=== PATIENT | female | born 1970 | race Caucasian/White ===

== ENCOUNTER 2021-10-30 16:17 | Inpatient (IN) | payer OTHER, SELFPAY ==
[2021-10-30 18:00] VITALS: BP 134/80; PULSE 74
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
[2021-10-31 09:09] VITALS: BP 132/84; PULSE 109; RESP 16; TEMP 36.2; O2SAT 98
--- NOTE | 2021-10-31 11:37 | HO.PM.IMCN ---
History of Present Illness Data of Consult Service Date: 10/31/21 Primary Care Provider: Unknown Physician HPI Reason for consult: Medical H&P 51 yo unreliable historian who is admitted on M5. She reports her medical history is only significant for b/l congenital hip dysplasia and mutiple surgeries. She appears to be on medicine for HTN, GERD, Hypothyroid. She denies any current active medical problems. PMH Likely: GERD, HTN, Hypothyroid PSH Multiple hip surgeries, CCK, b/l Breast reduction FH CAD SH Denies Tobacco, Alcohol or Illicit substances Review of Systems Review of Systems: negative except hpi PMFSH Social History Household Members: None Housing: Unknown / Unable to assess Do you presently have visiting nurse or other home services: No Patient Tobacco Use Status: Never used Tobacco Smoked in Last 30 Days: No e-Cigarette/Vaping Use: Never Used Patient Interested in Nicotine Replacement: No Patient Given Instructions on How to Stop Smoking: No Second Hand Smoke Exposure: No Use of substances other than those prescribed or required for medical reasons: No Currently Displaying Signs/Symptoms of Drug Intoxication Withdrawal: No Have you been hit, kicked, punched, or otherwise hurt by someone within the past year? If so, by whom?: No Do you feel safe in your current relationship?: No Current Relationship Is there a partner from a previous relationship who is making you feel unsafe now?: No Are you made to feel afraid or neglected: No Advance Directives: No Advance Directives Information Provided: No Do you have thoughts of harming others: None Do you have a plan to hurt others: No Plan Recently lost weight without trying: No How much weight loss: Not applicable Nutrition Risks: No Nutritional Risk Patient : No : No Poor oral hygiene: No Meds Allergies Allergy/AdvReac Type Severity Reaction Status Date / Time erythromycin base Allergy Unknown Hives Verified 10/30/21 16:44 [From Erythrocin] Active Medications: Current Medications Acetaminophen (Acetaminophen 325 Mg Tablet) 650 mg PO Q6H PRN PRN Reason: Headache/Pain Mild Scale (1-3) Al Hydroxide/Mg Hydroxide (Magnesium Hydrox/Alum Hydrox 30 Ml Oral.Susp) 30 ml PO Q6H PRN PRN Reason: Heartburn/Nausea Bupropion HCl (Bupropion Hcl 75 Mg Tablet) 75 mg PO BID [facility] Last Admin: 10/31/21 09:18 Dose: Not Given Documented by: Diphenhydramine HCl (Diphenhydramine Hcl 25 Mg Tablet) 50 mg PO Q4H PRN PRN Reason: agitation Famotidine (Famotidine 20 Mg Tablet) 20 mg PO DAILY [facility] Last Admin: 10/31/21 09:18 Dose: Not Given Documented by: Haloperidol (Haloperidol 5 Mg Tablet) 5 mg PO Q4H PRN PRN Reason: agitation Hydroxyzine HCl (Hydroxyzine Hcl 25 Mg Tablet) 25 mg PO BEDTIME PRN PRN Reason: Anxiety Levothyroxine Sodium (Levothyroxine Sodium 50 Mcg Tablet) 50 mcg PO DAILY@0600 [facility] Last Admin: 10/31/21 05:26 Dose: Not Given Documented by: Lorazepam (Lorazepam 1 Mg Tablet) 2 mg PO Q4H PRN PRN Reason: agitation Magnesium Hydroxide (Milk Of Magnesia 30 Ml Oral.Susp) 30 ml PO DAILY PRN PRN Reason: Constipation Methylphenidate HCl (Methylphenidate Hcl 10 Mg Tablet) 10 mg PO TID [facility] Last Admin: 10/31/21 09:18 Dose: Not Given Documented by: Metoprolol Tartrate (Metoprolol Tartrate 25 Mg Tablet) 25 mg PO BID [facility]; Protocol Last Admin: 10/31/21 09:19 Dose: Not Given Documented by: Olanzapine (Olanzapine 5 Mg Tablet) 5 mg PO BEDTIME [facility] Last Admin: 10/30/21 18:25 Dose: Not Given Documented by: Trazodone HCl (Trazodone Hcl 50 Mg Tablet) 50 mg PO BEDTIME PRN PRN Reason: Insomnia Home Medications Medication Instructions Recorded Confirmed Last Taken Type acetaminophen 325 mg tablet tab PO DAILY 10/30/21 10/30/21 Unknown History (Tylenol) bupropion HCl 75 mg tablet 1 tab PO BID 10/30/21 10/30/21 Unknown History famotidine 20 mg tablet 1 tab PO DAILY 10/30/21 10/30/21 Unknown History gabapentin 600 mg tablet mg PO 10/30/21 10/30/21 Unknown History levothyroxine 50 mcg tablet 1 tab PO DAILY 10/30/21 10/30/21 Unknown History methadone 10 mg tablet tab PO 10/30/21 10/30/21 Unknown History methylphenidate HCl 10 mg tablet 1 tab PO TID 10/30/21 10/30/21 Unknown History metoprolol tartrate 25 mg tablet 1 tab PO BID 10/30/21 10/30/21 Unknown History olanzapine 5 mg tablet (Zyprexa) 5 mg PO BEDTIME 10/30/21 10/30/21 Unknown History Physical Exam Vital Signs and Narrative: Vital Signs: Last Vital Signs Temp 97.2 F 10/31/21 09:09 Pulse 109 H 10/31/21 09:09 Resp 16 10/31/21 09:09 BP 132/84 10/31/21 09:09 Pulse Ox 98 10/31/21 09:09 Const: Other: General - no acute distress, appears comfortable Cardiovascular - regular rate and rhythm, S1-S2 Lungs - normal respiratory effort, clear to auscultation bilaterally, no wheezing Abdomen - soft, nontender, no rebound or guarding Extremities - no edema bilaterally Neuro - awake and alert, no focal deficits; CN 2-12 in tact b/l Assessment and Plan (1) Routine medical exam: Status: Acute Plan 51 yo F who is an unreliable historian. She is admitted to the inpatient psych unit. Medical consult requested for medical H&P. Continue her baseline medications for her chronic medical problems. If not completed at outside hospital --- perform routine labs, EKG, etc. Medically Stable at this time. Please reconsult PRN.
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
[2021-10-31 18:00] VITALS: RESP 16
[2021-11-01 06:00] VITALS: BP 130/81; PULSE 95; RESP 18; TEMP 36.5; O2SAT 99
[2021-11-01 15:59] VITALS: BP 136/87; PULSE 98
--- NOTE | 2021-11-01 16:39 | HO.PSYCHPN ---
Subjective Subjective Date of Service: 11/01/21 Reason For Visit: mood disorder Subjective Notes: Section 12B Interim History: Met with patient and discussed with nursing. As per nursing sleep was broken last night but patient is declining all medications. Patient reports they need to go to [facility] for hip surgery. Reported having surgery there was a child for congenital hip dysplasia. Reports that be working with the same surgeons for many years and that they also taught the patient how to do their own surgery. Reports sleep has been going well. Still does not feel there is any need for medications and they simply need to be discharged. Unable to clarify circumstances of being in hospital and insight poor. Medication Compliance: No Side effects from medications: No Attending Groups: Intermittent Review of Systems Acute medical concerns: No Review of Systems Review of Systems Unremarkable Mental Status Exam Mental Status Exam Narrative: seen in room. Cooperative with show card writer. Some thought disorder at times. Flat affect. No SI. No HI. Bizarre delusions. Denies hallucinations. Insight judgment limited Diagnostics Vital Signs (24Hr): Vital Signs - 24 hr 10/31/21 18:00 11/01/21 06:00 11/01/21 15:59 Temperature 97.7 F Pulse Rate 95 98 Respiratory Rate 16 18 Blood Pressure 130/81 136/87 Pulse Oximetry 99 Medications Medications Current Medications Acetaminophen (Acetaminophen 325 Mg Tablet) 650 mg PO Q6H PRN PRN Reason: Headache/Pain Mild Scale (1-3) Al Hydroxide/Mg Hydroxide (Magnesium Hydrox/Alum Hydrox 30 Ml Oral.Susp) 30 ml PO Q6H PRN PRN Reason: Heartburn/Nausea Diphenhydramine HCl (Diphenhydramine Hcl 25 Mg Tablet) 50 mg PO Q4H PRN PRN Reason: agitation Famotidine (Famotidine 20 Mg Tablet) 20 mg PO DAILY PRN PRN Reason: dyspepsia Haloperidol (Haloperidol 5 Mg Tablet) 5 mg PO Q4H PRN PRN Reason: agitation Hydroxyzine HCl (Hydroxyzine Hcl 25 Mg Tablet) 25 mg PO Q6H PRN PRN Reason: Anxiety Levothyroxine Sodium (Levothyroxine Sodium 50 Mcg Tablet) 50 mcg PO DAILY@0600 [facility] Last Admin: 11/01/21 06:59 Dose: Not Given Documented by: Lorazepam (Lorazepam 1 Mg Tablet) 2 mg PO Q4H PRN PRN Reason: agitation Magnesium Hydroxide (Milk Of Magnesia 30 Ml Oral.Susp) 30 ml PO DAILY PRN PRN Reason: Constipation Metoprolol Tartrate (Metoprolol Tartrate 25 Mg Tablet) 25 mg PO BID PRN; Protocol PRN Reason: HTN Olanzapine (Olanzapine 5 Mg Tablet) 5 mg PO BEDTIME [facility] Last Admin: 10/31/21 18:58 Dose: Not Given Documented by: Trazodone HCl (Trazodone Hcl 50 Mg Tablet) 50 mg PO BEDTIME PRN PRN Reason: Insomnia Allergies Allergies Allergy/AdvReac Type Severity Reaction Status Date / Time erythromycin base Allergy Unknown Hives Verified 10/30/21 16:44 [From Erythrocin] Assessment & Plan Assessment & Plan (1) Psychotic disorder: Status: Acute Code(s): F29 - Unspecified psychosis not due to a substance or known physiological condition (2) Hip dysplasia, congenital: Status: Chronic Code(s): Q65.89 - Other specified congenital deformities of hip Plan Patient is a 51-year-old female with history of psychotic disorder or bipolar disorder, past psychiatric hospitalization, hypertension congenital hip dysplasia status post surgery, chronic hip pain prescribed methadone who presents for paranoid, delusional thinking, brought in by police, reports saying that patient was arrested for assault and battery with a weapon and making homicidal statements. On admission, patient is mildly manic, talking a little fast. She has a fixed, false persecutory delusional thought about local morals squad police officer intentionally targeting her, aiming to kill her so he can acquire her house. Patient has no insight and no judgment. She does not want medication and remains on a Section 12 B. Patient denies any HI or having assaulted anyone; denies SI or AVH. At 1 point she seemed to imply she had not been sleeping much, but with further inquiry she says that no she has been sleeping overall well enough, about 7 hours a night. PLAN: SECTION 12B Q 15 minute checks Will discontinue methadone which she says she no longer is taking and will refuse. Patient also refuses all prescribed home medications including metoprolol (currently BP within normal limits) Will add Haldol/Ativan/Benadryl as a p.r.n. Will need to gather collateral At this point suspect will need to file for commitment reviewed labs from [facility] CBC, lytes, BUN/creatinine all within normal limits; negative urine ; U tox negative for alcohol 11/01/2021: No changes to primary team treatment plan as commitment hearing pending while refusing medications I spent minutes with the patient and/or on the patient floor today, greater than?50% of which was spent counseling/coordinating care. Reason for contiued inpatient stay Substantial Risk for: inability to function
[2021-11-01] MEDS: Acetaminophen 325 MG TABLET 650 MG PO (18:54)
[2021-11-01] MEDS: diphenhydrAMINE HCL 25 MG TABLET 50 MG PO (23:38)
[2021-11-02] MEDS: Acetaminophen 325 MG TABLET 650 MG PO ×2 (01:45→09:20)
[2021-11-02] MEDS: Metoprolol Tartrate 25 MG TABLET PO ×2 (03:37→13:25)
[2021-11-02] MEDS: diphenhydrAMINE HCL 25 MG TABLET 50 MG PO ×3 (03:38→13:25)
[2021-11-02] MEDS: Famotidine 20 MG TABLET PO (03:40)
[2021-11-02 03:46] VITALS: BP 140/93; PULSE 85; RESP 18; TEMP 36.6; O2SAT 98
[2021-11-02] MEDS: Levothyroxine Sodium 50 MCG TABLET PO (05:56)
--- NOTE | 2021-11-02 11:52 | P.PNPSI_ITS ---
Subjective Subjective Date of Service: 11/02/21 Reason For Visit: mood disorder Subjective Notes: Section 12B Medical Problems Affecting Mental Status: Yes (Chronic arthralgia) Interim History: Met with patient and discussed with nursing. Patient continues to report ongoing need for hip surgery. Delusional believes around being able to perform self surgery and bizarre delusions appears slightly less intense today. Denies depression. Does endorse chronic pain with asking about ibuprofen. Also reported that Suboxone was helpful in the past and may discuss this with her treatment team. 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 Sleep has been broken at night and reported that low-dose Benadryl was helpful in the past 12.5 mg. Did bright not been she talked about her family and her daughter. Otherwise unable to clarify circumstances of being in hospital and insight poor. Medication Compliance: No Side effects from medications: No Attending Groups: No Review of Systems Acute medical concerns: No Review of Systems Musculoskeletal: Reports arthralgias (b/l intermittent hip pain; chronic) Comments: Arthralgia Mental Status Exam Mental Status Exam Narrative: Seen in room. Cooperative with public relations writer. Some thought disorder at times. Flat affect. No SI. No HI. Bizarre delusions, but less intense today. Denies hallucinations. Insight judgment limited Diagnostics Vital Signs (24Hr): Vital Signs - 24 hr 11/01/21 15:59 11/02/21 03:46 Temperature 97.9 F Pulse Rate 98 85 Respiratory Rate 18 Blood Pressure 136/87 140/93 H Pulse Oximetry 98 Medications Medications Current Medications Acetaminophen (Acetaminophen 325 Mg Tablet) 650 mg PO Q6H PRN PRN Reason: Headache/Pain Mild Scale (1-3) Last Admin: 11/02/21 09:20 Dose: 650 mg Documented by: Al Hydroxide/Mg Hydroxide (Magnesium Hydrox/Alum Hydrox 30 Ml Oral.Susp) 30 ml PO Q6H PRN PRN Reason: Heartburn/Nausea Diphenhydramine HCl (Diphenhydramine Hcl 25 Mg Tablet) 50 mg PO Q4H PRN PRN Reason: agitation Last Admin: 11/02/21 09:20 Dose: 50 mg Documented by: Famotidine (Famotidine 20 Mg Tablet) 20 mg PO DAILY PRN PRN Reason: dyspepsia Last Admin: 11/02/21 03:40 Dose: 20 mg Documented by: Haloperidol (Haloperidol 5 Mg Tablet) 5 mg PO Q4H PRN PRN Reason: agitation Hydroxyzine HCl (Hydroxyzine Hcl 25 Mg Tablet) 25 mg PO Q6H PRN PRN Reason: Anxiety Levothyroxine Sodium (Levothyroxine Sodium 50 Mcg Tablet) 50 mcg PO DAILY@0600 [facility] Last Admin: 11/02/21 05:56 Dose: 50 mcg Documented by: Lorazepam (Lorazepam 1 Mg Tablet) 2 mg PO Q4H PRN PRN Reason: agitation Magnesium Hydroxide (Milk Of Magnesia 30 Ml Oral.Susp) 30 ml PO DAILY PRN PRN Reason: Constipation Metoprolol Tartrate (Metoprolol Tartrate 25 Mg Tablet) 25 mg PO BID PRN; Protocol PRN Reason: HTN Last Admin: 11/02/21 03:37 Dose: 25 mg Documented by: Olanzapine (Olanzapine 5 Mg Tablet) 5 mg PO BEDTIME [facility] Last Admin: 11/01/21 18:21 Dose: Not Given Documented by: Trazodone HCl (Trazodone Hcl 50 Mg Tablet) 50 mg PO BEDTIME PRN PRN Reason: Insomnia Allergies Allergies Allergy/AdvReac Type Severity Reaction Status Date / Time erythromycin base Allergy Unknown Hives Verified 10/30/21 16:44 [From Erythrocin] Assessment & Plan Assessment & Plan (1) Psychotic disorder: Status: Acute Code(s): F29 - Unspecified psychosis not due to a substance or known physiological condi tion (2) Hip dysplasia, congenital: Status: Chronic Code(s): Q65.89 - Other specified congenital deformities of hip Plan Patient is a 51-year-old female with history of psychotic disorder or bipolar disorder, past psychiatric hospitalization, hypertension congenital hip dyspla wendy status post surgery, chronic hip pain prescribed methadone who presents for paranoid, delusional thinking, brought in by police, reports saying that patient was arrested for assault and battery with a weapon and making homicidal statements. On admission, patient is mildly manic, talking a little fast. She has a fixed, false persecutory delusional thought about local chief of police intentionally targeting her, aiming to kill her so he can acquire her house. Patient has no insight and no judgment. She does not want medication and remains on a Section 12 B. Patient denies any HI or having assaulted anyone; denies SI or AVH. At 1 point she seemed to imply she had not been sleeping much, but with further inquiry she says that no she has been sleeping overall well enough, about 7 hours a night. PLAN: SECTION 12B Q 15 minute checks Will discontinue methadone which she says she no longer is taking and will refuse. Patient also refuses all prescribed home medications including metop rolol (currently BP within normal limits) Will add Haldol/Ativan/Benadryl as a p.r.n. Will need to gather collateral At this point suspect will need to file for commitment reviewed labs from [facility] CBC, lytes, BUN/creatinine all within normal limits; negative urine ; U tox negative for alcohol 11/01/2021: No changes to primary team treatment plan as commitment hearing pending while refusing medications 11/02/2021: Benadryl 12.5 mg at bedtime. I spent minutes with the patient and/or on the patient floor today, greater than?50% of which was spent counseling/coordinating care. Reason for contiued inpatient stay Substantial Risk for: inability to function
[2021-11-02 13:20] VITALS: BP 157/102; PULSE 90; O2SAT 99
[2021-11-02] MEDS: LORazepam 1 MG TABLET 2 MG PO (13:25)
[2021-11-02] MEDS: HaloperidoL 5 MG TABLET PO (13:25)
[2021-11-02] MEDS: Ibuprofen 600 MG TABLET PO (13:25)
--- NOTE | 2021-11-02 13:31 | PC.NURSE ---
Patient was agitated and complaining about the BP was high. VS was taken BP 157/102 . Pls 90 and PRN meds given. Will continue to monitor.
[2021-11-02 16:21] VITALS: BP 146/90; PULSE 81
[2021-11-02] MEDS: diphenhydrAMINE HCL 25 MG TABLET 12.5 MG PO (19:43)
[2021-11-03 06:00] VITALS: BP 138/96; PULSE 97; TEMP 36.4; O2SAT 96
[2021-11-03] MEDS: Levothyroxine Sodium 50 MCG TABLET PO (06:13)
[2021-11-03] MEDS: Ibuprofen 600 MG TABLET PO ×2 (06:13→15:08)
--- NOTE | 2021-11-03 07:52 | P.PNPSI_ITS ---
Subjective Subjective Date of Service: 11/03/21 Reason For Visit: mood disorder Subjective Notes: Section 12B Guardianship: Yes Interim History: Patient was seen and discussed in rounds today. She continues to be preoccupied with a lot of somatic delusions and refusing any psychotropic trope 6, stating that ?I do not need them?. She has started taking a very low-dose Benadryl which she says it is helpful with anxiety. She is eating and sleeping adequately. She is isolative. I discussed about the advisability of taking the Zyprexa but she is quite closed off to that idea. Medication Compliance: No Side effects from medications: No Attending Groups: Yes Review of Systems Acute medical concerns: No Review of Systems Review of Systems Yes all other systems are reviewed and are negative Musculoskeletal: Reports arthralgias (b/l intermittent hip pain; chronic) Comments: Arthralgia Mental Status Exam Mental Status Exam Narrative: In today's visit she was seen in the common area. She is alert, oriented and pleasant. Normal speech. Moderate eye contact. Affect is appropriate and varied. No acute signs of psychosis observed. Delusions and somatic preoccupations persisting. No SI/HI. Cognitively intact. Judgment is marginal. She continues to have very little to no insight Diagnostics Vital Signs (24Hr): Vital Signs - 24 hr 11/02/21 13:20 11/02/21 16:21 11/03/21 06:00 Temperature 97.6 F Pulse Rate 90 81 97 Blood Pressure 157/102 H 146/90 H 138/96 H Pulse Oximetry 99 96 Medications Medications Current Medications Acetaminophen (Acetaminophen 325 Mg Tablet) 650 mg PO Q6H PRN PRN Reason: Headache/Pain Mild Scale (1-3) Last Admin: 11/02/21 09:20 Dose: 650 mg Documented by: Al Hydroxide/Mg Hydroxide (Magnesium Hydrox/Alum Hydrox 30 Ml Oral.Susp) 30 ml PO Q6H PRN PRN Reason: Heartburn/Nausea Diphenhydramine HCl (Diphenhydramine Hcl 25 Mg Tablet) 50 mg PO Q4H PRN PRN Reason: agitation Last Admin: 11/02/21 13:25 Dose: 50 mg Documented by: Diphenhydramine HCl (Diphenhydramine Hcl 25 Mg Tablet) 12.5 mg PO BEDTIME [facility] Last Admin: 11/02/21 19:43 Dose: 12.5 mg Documented by: Famotidine (Famotidine 20 Mg Tablet) 20 mg PO DAILY PRN PRN Reason: dyspepsia Last Admin: 11/02/21 03:40 Dose: 20 mg Documented by: Haloperidol (Haloperidol 5 Mg Tablet) 5 mg PO Q4H PRN PRN Reason: agitation Last Admin: 11/02/21 13:25 Dose: 5 mg Documented by: Hydroxyzine HCl (Hydroxyzine Hcl 25 Mg Tablet) 25 mg PO Q6H PRN PRN Reason: Anxiety Ibuprofen (Ibuprofen 600 Mg Tablet) 600 mg PO Q8H PRN PRN Reason: joint pain Last Admin: 11/03/21 06:13 Dose: 600 mg Documented by: Levothyroxine Sodium (Levothyroxine Sodium 50 Mcg Tablet) 50 mcg PO DAILY@0600 [facility] Last Admin: 11/03/21 06:13 Dose: 50 mcg Documented by: Lorazepam (Lorazepam 1 Mg Tablet) 2 mg PO Q4H PRN PRN Reason: agitation Last Admin: 11/02/21 13:25 Dose: 2 mg Documented by: Magnesium Hydroxide (Milk Of Magnesia 30 Ml Oral.Susp) 30 ml PO DAILY PRN PRN Reason: Constipation Metoprolol Tartrate (Metoprolol Tartrate 25 Mg Tablet) 25 mg PO BID PRN; Protocol PRN Reason: HTN Last Admin: 11/02/21 13:25 Dose: 25 mg Documented by: Olanzapine (Olanzapine 5 Mg Tablet) 5 mg PO BEDTIME [facility] Last Admin: 11/02/21 19:47 Dose: Not Given Documented by: Trazodone HCl (Trazodone Hcl 50 Mg Tablet) 50 mg PO BEDTIME PRN PRN Reason: Insomnia Allergies Allergies Allergy/AdvReac Type Severity Reaction Status Date / Time erythromycin base Allergy Unknown Hives Verified 10/30/21 16:44 [From Erythrocin] Assessment & Plan Assessment & Plan (1) Psychotic disorder: Status: Acute Code(s): F29 - Unspecified psychosis not due to a substance or known physiological condition (2) Hip dysplasia, congenital: Status: Chronic Code(s): Q65.89 - Other specified congenital deformities of hip Plan Patient is a 51-year-old female with history of psychotic disorder or bipolar disorder, past psychiatric hospitalization, hypertension congenital hip dysplasia status post surgery, chronic hip pain prescribed methadone who presents for paranoid, delusional thinking, brought in by police, reports saying that patient was arrested for assault and battery with a weapon and making homicidal statements. On admission, patient is mildly manic, talking a little fast. She has a fixed, false persecutory delusional thought about local [place] police intentionally targeting her, aiming to kill her so he can acquire her house. Patient has no insight and no judgment. She does not want medication and remains on a Section 12 B. Patient denies any HI or having assaulted anyone; denies SI or AVH. At 1 point she seemed to imply she had not been sleeping much, but with further inquiry she says that no she has been sleeping overall well enough, about 7 hours a night. PLAN: SECTION 12B Q 15 minute checks Will discontinue methadone which she says she no longer is taking and will refuse. Patient also refuses all prescribed home medications including metoprolol (currently BP within normal limits) Will add Haldol/Ativan/Benadryl as a p.r.n. Will need to gather collateral At this point suspect will need to file for commitment reviewed labs from [facility] CBC, lytes, BUN/creatinine all within normal limits; negative urine ; U tox negative for alcohol 11/01/2021: No changes to primary team treatment plan as commitment hearing pending while refusing medications 11/02/2021: Benadryl 12.5 mg at bedtime. 11/03/2021 continue current regimen and plans. Encouraged to take Zyprexa I spent minutes with the patient and/or on the patient floor today, greater than?50% of which was spent counseling/coordinating care. Reason for contiued inpatient stay Substantial Risk for: med/psych decompensation
[2021-11-03] MEDS: hydrOXYzine HCL 25 MG TABLET PO ×2 (15:14→23:58)
[2021-11-03] MEDS: Acetaminophen 325 MG TABLET 650 MG PO (17:28)
[2021-11-03 17:42] VITALS: BP 137/85; PULSE 113
[2021-11-03] MEDS: diphenhydrAMINE HCL 25 MG TABLET 12.5 MG PO (20:29)
[2021-11-03] MEDS: Magnesium Hydrox/Alum Hydrox 30 ML ORAL.SUSP PO (22:53)
[2021-11-03] MEDS: Famotidine 20 MG TABLET PO (22:53)
[2021-11-04] MEDS: Levothyroxine Sodium 50 MCG TABLET PO (04:22)
[2021-11-04 06:00] VITALS: BP 161/83; PULSE 89; RESP 18; TEMP 36.4; O2SAT 98
[2021-11-04] MEDS: Ibuprofen 600 MG TABLET PO ×2 (10:47→18:10)
[2021-11-04] MEDS: Famotidine 20 MG TABLET PO (13:02)
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
[2021-11-04] MEDS: Gabapentin 300 MG CAPSULE PO (17:03)
[2021-11-04 18:00] VITALS: BP 143/67; PULSE 102; TEMP 36.4; O2SAT 97
[2021-11-04] MEDS: LORazepam 1 MG TABLET 2 MG PO (18:10)
[2021-11-04] MEDS: diphenhydrAMINE HCL 25 MG TABLET 50 MG PO (18:10)
[2021-11-04] MEDS: Valproic Acid 250 MG CAPSULE 500 MG PO (20:46)
[2021-11-04] MEDS: diphenhydrAMINE HCL 25 MG TABLET 12.5 MG PO (20:47)
[2021-11-05] MEDS: Ibuprofen 600 MG TABLET PO ×2 (05:29→16:59)
[2021-11-05] MEDS: Gabapentin 300 MG CAPSULE PO (05:30)
[2021-11-05] MEDS: Levothyroxine Sodium 50 MCG TABLET PO (05:30)
[2021-11-05 06:00] VITALS: BP 132/72; PULSE 97; TEMP 36.6; O2SAT 93
[2021-11-05] MEDS: Acetaminophen 325 MG TABLET 650 MG PO ×2 (08:27→16:58)
[2021-11-05] MEDS: hydrOXYzine HCL 25 MG TABLET PO (08:28)
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
[2021-11-05] MEDS: LORazepam 0.5 MG TABLET PO ×2 (13:13→17:17)
[2021-11-05] MEDS: diphenhydrAMINE HCL 25 MG TABLET 50 MG PO (16:59)
[2021-11-05] MEDS: Gabapentin 300 MG CAPSULE 600 MG PO (16:59)
[2021-11-05] MEDS: Famotidine 20 MG TABLET PO (17:00)
[2021-11-05 18:00] VITALS: BP 140/79; PULSE 104; TEMP 36.6; O2SAT 97
[2021-11-05] MEDS: Valproic Acid 250 MG CAPSULE 750 MG PO (22:22)
[2021-11-05] MEDS: diphenhydrAMINE HCL 25 MG TABLET 12.5 MG PO (22:22)
[2021-11-06] MEDS: diphenhydrAMINE HCL 25 MG TABLET 50 MG PO (01:52)
[2021-11-06] MEDS: Gabapentin 300 MG CAPSULE 600 MG PO ×3 (01:54→16:23)
[2021-11-06] MEDS: Acetaminophen 325 MG TABLET 650 MG PO ×2 (01:54→20:11)
[2021-11-06 06:00] VITALS: BP 122/86; PULSE 93; RESP 18; TEMP 36.3; O2SAT 97
[2021-11-06] MEDS: LORazepam 1 MG TABLET 2 MG PO (06:36)
[2021-11-06] MEDS: Ibuprofen 600 MG TABLET PO ×2 (06:37→16:23)
[2021-11-06] MEDS: Levothyroxine Sodium 50 MCG TABLET PO (06:38)
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
[2021-11-06 19:38] VITALS: BP 140/84; PULSE 95
[2021-11-06] MEDS: Valproic Acid 250 MG CAPSULE 750 MG PO (20:10)
[2021-11-06] MEDS: diphenhydrAMINE HCL 25 MG TABLET 12.5 MG PO (20:10)
[2021-11-07] MEDS: Gabapentin 300 MG CAPSULE 600 MG PO ×4 (03:19→20:24)
[2021-11-07] MEDS: Ibuprofen 600 MG TABLET PO ×3 (03:19→23:56)
[2021-11-07] MEDS: Famotidine 20 MG TABLET PO (03:19)
[2021-11-07 04:43] VITALS: BP 130/84; PULSE 90; TEMP 36.5; O2SAT 97
[2021-11-07] MEDS: Levothyroxine Sodium 50 MCG TABLET PO (07:00)
[2021-11-07] MEDS: Acetaminophen 325 MG TABLET 650 MG PO ×2 (08:49→20:24)
[2021-11-07] MEDS: diphenhydrAMINE HCL 25 MG TABLET 50 MG PO (08:49)
[2021-11-07 09:16] LABS: Ammonia 25 umol/L (13-55)
[2021-11-07 09:26] LABS: Alanine Aminotransferase 25 U/L (0-31); Albumin Level 4.2 g/dL (3.5-5.0); Alkaline Phosphatase 51 U/L (39-117); Aspartate Amino Transferase 17 U/L (5-31); Bilirubin Direct < 0.2 mg/dL (0.0-0.5); Bilirubin Total 0.3 mg/dL (0.0-1.0)
[2021-11-07 09:47] LABS: TSH reflex Free T4 1.28 uIU/mL (0.32-4.0)
[2021-11-07 09:52] LABS: Valproate 38.5 mcg/mL (50.0-100.0)
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
[2021-11-07] MEDS: diphenhydrAMINE HCL 25 MG TABLET 12.5 MG PO (20:19)
[2021-11-07 20:21] VITALS: BP 143/90; PULSE 97; TEMP 37.1
[2021-11-07] MEDS: Divalproex Sodium ER 500 MG TAB.ER.24H 1000 MG PO (20:54)
[2021-11-08] MEDS: Gabapentin 300 MG CAPSULE 600 MG PO ×2 (02:18→09:16)
[2021-11-08] MEDS: Levothyroxine Sodium 50 MCG TABLET PO (06:24)
[2021-11-08] MEDS: Ibuprofen 600 MG TABLET PO ×2 (09:16→20:04)
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
[2021-11-08] MEDS: Acetaminophen 325 MG TABLET 650 MG PO (14:45)
[2021-11-08] MEDS: diphenhydrAMINE HCL 25 MG TABLET 12.5 MG PO (20:04)
[2021-11-08 20:56] VITALS: BP 122/65; PULSE 82; TEMP 36.7; O2SAT 98
[2021-11-09] MEDS: Acetaminophen 325 MG TABLET 650 MG PO ×2 (03:23→20:08)
[2021-11-09] MEDS: LORazepam 1 MG TABLET 2 MG PO (04:25)
[2021-11-09] MEDS: Levothyroxine Sodium 50 MCG TABLET PO (04:25)
[2021-11-09] MEDS: HaloperidoL 5 MG TABLET PO (04:26)
[2021-11-09] MEDS: diphenhydrAMINE HCL 25 MG TABLET 50 MG PO (04:26)
[2021-11-09] MEDS: Gabapentin 300 MG CAPSULE 600 MG PO ×2 (04:28→15:42)
[2021-11-09] MEDS: Ibuprofen 600 MG TABLET PO ×2 (10:58→15:42)
[2021-11-09 18:00] VITALS: BP 126/69; PULSE 76; RESP 16; TEMP 36.4; O2SAT 96
[2021-11-09] MEDS: Divalproex Sodium ER 500 MG TAB.ER.24H 1000 MG PO (19:55)
[2021-11-09] MEDS: diphenhydrAMINE HCL 25 MG TABLET 12.5 MG PO (19:55)
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
[2021-11-10] MEDS: Gabapentin 300 MG CAPSULE 600 MG PO ×3 (05:54→20:47)
[2021-11-10] MEDS: Ibuprofen 600 MG TABLET PO ×2 (05:54→14:37)
[2021-11-10] MEDS: Levothyroxine Sodium 50 MCG TABLET PO (05:54)
[2021-11-10 06:00] VITALS: BP 144/90; PULSE 92; RESP 18; TEMP 36.3; O2SAT 98
[2021-11-10] MEDS: Acetaminophen 325 MG TABLET 650 MG PO ×2 (11:21→20:47)
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
[2021-11-10 18:40] VITALS: BP 135/81; PULSE 94; RESP 18; TEMP 36.3; O2SAT 97
[2021-11-10] MEDS: diphenhydrAMINE HCL 25 MG TABLET 12.5 MG PO (20:47)
[2021-11-11 06:00] VITALS: BP 138/76; PULSE 88; RESP 18; TEMP 36.6; O2SAT 97
[2021-11-11] MEDS: Levothyroxine Sodium 50 MCG TABLET PO (06:18)
[2021-11-11] MEDS: Ibuprofen 600 MG TABLET PO ×2 (08:11→18:06)
[2021-11-11] MEDS: Gabapentin 300 MG CAPSULE 600 MG PO ×3 (08:14→18:06)
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
[2021-11-11] MEDS: Acetaminophen 325 MG TABLET 650 MG PO (14:41)
[2021-11-11 16:30] VITALS: BP 146/80; PULSE 94
[2021-11-11] MEDS: diphenhydrAMINE HCL 25 MG TABLET 12.5 MG PO (19:26)
[2021-11-12] MEDS: Ibuprofen 600 MG TABLET PO ×2 (04:34→14:21)
[2021-11-12] MEDS: diphenhydrAMINE HCL 25 MG TABLET 50 MG PO (04:35)
[2021-11-12] MEDS: Levothyroxine Sodium 50 MCG TABLET PO (05:14)
[2021-11-12 06:00] VITALS: BP 133/89; PULSE 77; RESP 18; TEMP 36.4; O2SAT 98
[2021-11-12] MEDS: Acetaminophen 325 MG TABLET 650 MG PO ×2 (13:04→20:24)
[2021-11-12] MEDS: Gabapentin 300 MG CAPSULE 600 MG PO ×2 (13:04→20:25)
[2021-11-12] MEDS: LORazepam 0.5 MG TABLET PO ×2 (14:19→20:25)
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
[2021-11-12 19:25] VITALS: BP 137/78; PULSE 93; RESP 17; TEMP 36.6; O2SAT 100
[2021-11-12] MEDS: diphenhydrAMINE HCL 25 MG TABLET 12.5 MG PO (20:25)
[2021-11-13] MEDS: Ibuprofen 600 MG TABLET PO ×2 (02:50→12:42)
[2021-11-13 05:38] VITALS: BP 129/84; PULSE 88; TEMP 36.6; O2SAT 98
[2021-11-13] MEDS: Levothyroxine Sodium 50 MCG TABLET PO (06:46)
[2021-11-13 07:00] VITALS: BMI 31.1
[2021-11-13] MEDS: Gabapentin 300 MG CAPSULE 600 MG PO ×2 (08:37→19:20)
[2021-11-13] MEDS: LORazepam 0.5 MG TABLET PO (08:37)
[2021-11-13] MEDS: Acetaminophen 325 MG TABLET 650 MG PO (08:37)
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
[2021-11-13] MEDS: diphenhydrAMINE HCL 25 MG TABLET 12.5 MG PO (19:18)
[2021-11-13 20:28] VITALS: BP 142/85; PULSE 89; TEMP 36.2
[2021-11-14] MEDS: LORazepam 0.5 MG TABLET PO (05:33)
[2021-11-14] MEDS: Acetaminophen 325 MG TABLET 650 MG PO (05:33)
[2021-11-14] MEDS: Ibuprofen 600 MG TABLET PO (05:34)
[2021-11-14] MEDS: Levothyroxine Sodium 50 MCG TABLET PO (05:34)
[2021-11-14] MEDS: Gabapentin 300 MG CAPSULE 600 MG PO (05:34)
[2021-11-14 06:00] VITALS: BP 131/84; PULSE 85; RESP 16; TEMP 36.1; O2SAT 98
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
== END 2021-11-14 14:34 | disposition home or self-care (01) | DRG 885 ==
PROVIDERS: Admitting Provider Psychiatry & Neurology Psychiatry; Visit Provider Psychiatry & Neurology Psychiatry
DX: F31.2 Bipolar disorder, current episode manic severe with psychotic features (principal); F11.20 Opioid dependence, uncomplicated; I10 Essential (primary) hypertension; F43.10 Post-traumatic stress disorder, unspecified; K21.9 Gastro-esophageal reflux disease without esophagitis; E03.9 Hypothyroidism, unspecified; Q65.89 Other specified congenital deformities of hip; Z79.890 Hormone replacement therapy; Z79.899 Other long term (current) drug therapy
CPT/HCPCS: 36415; 80076; 80164; 82140; 84443; Q0163